=== PATIENT | male | born 1950 | race Caucasian/White ===

== ENCOUNTER 2023-08-30 07:19 | Day surgery (SDC) | payer MEDICARE ==
[~2023-08-30] VITALS: Ht 182.9 cm; Wt 113.4 kg
[~2023-08-30 07:19] MED LIST: ADLT ASA LOW81 MG PO; ATORVASTATIN CA40 MG PO; B121000 MC1; HYZAAR1 TA1 PO; OMEGA 31000 MG PO; PRESERVISION PO; SYNTHROID175 MCG PO; ZYRTEC10 MG PO
[2023-08-30 09:45] VITALS: BP 128/89
== END 2023-08-30 09:35 | disposition home or self-care (01) ==
LOC: ORM 07:19
PROVIDERS: ATTEND Surgery
PROC: 0DBM8ZX Excision of Descending Colon, Via Natural or Artificial Opening Endoscopic, Diagnostic (ICD-10-PCS; principal; 2023-08-30)
PROC: 0DBL8ZX Excision of Transverse Colon, Via Natural or Artificial Opening Endoscopic, Diagnostic (ICD-10-PCS; 2023-08-30)
PROC: 0DBP8ZX Excision of Rectum, Via Natural or Artificial Opening Endoscopic, Diagnostic (ICD-10-PCS; 2023-08-30)
DX: Z12.11 Encounter for screening for malignant neoplasm of colon (principal); D12.8 Benign neoplasm of rectum; D12.3 Benign neoplasm of transverse colon; D12.4 Benign neoplasm of descending colon; K57.30 Diverticulosis of large intestine without perforation or abscess without bleeding; K64.8 Other hemorrhoids; I10 Essential (primary) hypertension; E78.5 Hyperlipidemia, unspecified; D68.2 Hereditary deficiency of other clotting factors